=== PATIENT | female | born 1975 | race Caucasian/White ===

== ENCOUNTER 2020-07-16 10:31 | Emergency (ER) | payer OTHER | END 2020-07-16 10:35 | disposition home or self-care (01) | LOC: JVIRT 10:31 | DX: Z20.822 Contact with and (suspected) exposure to COVID-19 (principal) | CPT/HCPCS: C9803; G2012-GT; U0003 ==

== ENCOUNTER 2021-02-19 09:29 | Emergency (ER) | payer OTHER ==
[2021-02-19 09:36] VITALS: PULSE 76; TEMP 98.3; BMI 26.9
[2021-02-19] MEDS ORDERED: CASIRIVIMAB/IMDEVIMAB 10 ML in SODIUM CHLORIDE 100 ML IVPB ONE (09:56)
[2021-02-19 10:18] LABS: BASO % 0.4 % (0-2.0); EOS % 0.9 % (0-4.5); HEMATOCRIT 37.2 % (32.4-45.2); HEMOGLOBIN 12.4 GM/dL (10.7-15.3); LYMPH % 37.6 % (8-40); MCH 24.3 pg (25.7-33.7); MCHC 33.3 g/dl (32.0-36.0); MEAN PLT VOLUME 8.8 fl (7.5-11.1); MONO % 13.8 % (3.8-10.2); NEUT % 47.3 % (42.8-82.8); PLATELET COUNT 165 10^3/uL (134-434); RBC 5.11 M/mm3 (3.60-5.2); RDW 13.8 % (11.6-15.6); WHITE BLOOD COUNT 2.9 K/mm3 (4.0-10.0)
[2021-02-19 10:39] LABS: BLOOD UREA NITROGEN 9.1 mg/dL (7-18); CALCIUM 8.8 mg/dL (8.5-10.1)
[2021-02-19 10:41] LABS: CREATININE 0.9 mg/dL (0.55-1.3)
[2021-02-19 12:49] VITALS: BP 112/68
== END 2021-02-19 12:45 | disposition home or self-care (01) ==
LOC: JER 09:29
PROC: 3E033GC Introduction of Other Therapeutic Substance into Peripheral Vein, Percutaneous Approach (ICD-10-PCS; principal; 2021-02-19)
DX: U07.1 COVID-19 (principal)
CPT/HCPCS: 36415; 80048; 85025; 99284-25; M0240; Q0240